=== PATIENT | male | born 1940 | race Caucasian/White ===

== ENCOUNTER 2018-11-10 12:00 | Inpatient (IN) ==
[2018-12-03] MEDS ORDERED: GABAPENTIN 300 MG CAPSULE PO ONE ×2 (06:00→08:28)
[2018-12-03] MEDS ORDERED: Nasal Sanitizer POPSWAB ampule 3 AMP (Nozin) PREOP DOSE ENOS SCH (06:00)
[2018-12-03] MEDS ORDERED: CELECOXIB 200 MG CAPSULE PO ONE ×2 (06:00→08:27)
[2018-12-03] MEDS ORDERED: PANTOPRAZOLE 20 MG TABLET.DR PO ONE ×2 (06:00→08:27)
[2018-12-03] MEDS ORDERED: ceFAZolin Inj 2gm (Premix) 2 GM/50 ML BAG IV ONE ×2 (06:00→08:28)
[2018-12-03] MEDS ORDERED: Lactated Ringers 1,000 ML PRIMARY IV SCH ×2 (06:00→17:30)
[2018-12-03] MEDS ORDERED: LIDOCAINE W/ SODIUM BICARB 0.5 ML SYR SUBD ONE (06:00)
[2018-12-03] MEDS ORDERED: ACETAMINOPHEN 500 MG TABLET PO ONE ×2 (06:00→08:27)
[2018-12-03] MEDS ORDERED: LIDOCAINE W/ SODIUM BICARB 0.5 ML SYR ONE (08:28)
[2018-12-03] MEDS ORDERED: Lactated Ringers 1,000 ML PRIMARY IV ONE ×2 (08:28→15:48)
[2018-12-03 10:18] LABS: BILIRUBIN,URINE NEGATIVE (NEG); CLARITY,URINE CLEAR (CLEAR); COLOR,URINE YELLOW (Y); GLUCOSE, URINE (UA) NEGATIVE (NEG); OCCULT BLOOD,URINE NEGATIVE (NEG); PROTEIN,URINE NEGATIVE (NEG); UROBILINOGEN,URINE 0.2 EU/dL (0.2)
[2018-12-03 10:20] LABS: URINE SAMPLE TYPE CLEAN CATCH URINE
[2018-12-03 10:56] LABS: Hematocrit [HCT] 45.2 % (42.0-52.0); Hemoglobin [HGB] 15.2 g/dL (14.0-18.0); MEAN CORPUSCULAR HEMOGLOBIN 30.3 PG (27-31); MEAN CORPUSCULAR HGB CONC 33.6 g/dL (33-37); MEAN PLATELET VOLUME 9.6 FL (7.4-12.2); RED BLOOD COUNT 5.02 10^6/uL (4.70-6.10)
[2018-12-03 11:11] LABS: BLOOD UREA NITROGEN 29 mg/dL (7-22); BUN/CREATININE RATIO 36.25 (6-20)
[2018-12-03] MEDS ORDERED: Ropivacaine 0.2% VIAL 20 ML ONE (12:34)
[2018-12-03] MEDS ORDERED: BUPIVACAINE 0.5% W/EPI MPF -30 ML VIAL IV ONE (12:34)
[2018-12-03] MEDS ORDERED: DEXAMETHASONE PF 10 MG/1 ML VIAL ONE (12:34)
[2018-12-03] MEDS ORDERED: BUPivacaine Liposome/PF (Exparel) Inj 20ml vial INFIL ONE (12:47)
[2018-12-03] MEDS ORDERED: BACITRACIN 50,000 UNIT VIAL IRRIG ONE (12:47)
[2018-12-03] MEDS ORDERED: Sodium Chloride 0.9% vial 40 ML ONE (12:47)
[2018-12-03] MEDS ORDERED: Ketorolac Inj 30 MG, Morphine Inj (Ortho Cocktail) 4 MG, BUPivacaine Inj 0.25% PF 150 MG SPLASH ONE ×6 (13:02→16:45)
[2018-12-03] MEDS ORDERED: MIDAZOLAM HCL 2 MG/2 ML VIAL ONE (13:54)
[2018-12-03] MEDS ORDERED: EPINEPHrine Inj (1:1,000) 1 mg/ml amp ONE (13:54)
[2018-12-03] MEDS ORDERED: fentaNYL Inj 100 MCG/2 ML VIAL ONE ×2 (13:54→15:27)
[2018-12-03] MEDS ORDERED: MORPHINE SULFATE/PF 10 MG/10 ML AMPULE ONE (13:54)
[2018-12-03] MEDS ORDERED: LIDOCAINE HCL 2 % 10 ML JELLY URO-JECT TOPICAL ONE (14:12)
[2018-12-03] MEDS ORDERED: KETAMINE 100 MG/1 ML - 5 ML ONE (14:37)
[2018-12-03] MEDS ORDERED: PROPOFOL 10 MG/1 ML (200 MG/20 ML) VIAL IV ONE (14:37)
[2018-12-03] MEDS ORDERED: Hetastarch 6% + NS 500 ML IV ONE (14:57)
[2018-12-03] MEDS ORDERED: TRANEXAMIC ACID 1,000 MG / 10 ML VIAL ONE (15:15)
--- NOTE | 2018-12-03 15:58 | CRNA.PROGR ---
Anesthesia Time - Procedure/Recovery Time Start Date: 12/03/18 End Date: 12/03/18 Anesthesia : Time In: 14:42 Anesthesia : Time Out: 17:25 Anesthesia : Total Time: 163 - Block Time Start Date: 12/03/18 End Date: 12/03/18 PreOp Block : Time In: 14:00 PreOp Block : Time Out: 14:14 PreOp Block : Total Time: 14 - Total Anesthesia Time Total Anesthesia Time (minutes): 177 - Other Weight: 110.677 kg Height: 5 ft 11 in Body Mass Index (BMI): 34.0 Physical Status: P3 Anesthesia Type: General Anesthesia : LMA, Other
--- NOTE | 2018-12-03 16:06 | CRNA.PROCE ---
Central Neuraxis Block Placemt - - Safety Measures: Time Out Taken, Site Verified - - Type of Block: Subarachnoid Reason for Block: Surgical Moniters Used During Block: EKG, SPO2 Sedation Used - Enter Amount Used in Comment Field: Midazolam (mg): Yes (1), Fentanyl (mcg): Yes (1) Positioning: Sitting Skin Prep Used: ChloroPrep Draped: Yes Skin Infiltration - Enter Amount Used in Comment Field: 1% Xylocaine (mL): Yes (3.5) Introducer User: None Spinal Needle Used: 22 Amber 80 mm Additive Used - Enter Amount Used in Comment Field: Preservative Free Morphine (mg): Yes (0.15), Epinephrine 1:1000 Needle Rinse (mL): Yes (hub rinse) - - Additional Details: Unable to get free flow CSF. Transient parasthesia's but no free flow csf Could not get in, 2 levels. Changed anesthesia technique. Anesthesia Time - Block Time PreOp Block : Time In: 14:00 PreOp Block : Time Out: 14:14 - Other Weight: 110.677 kg Height: 5 ft 11 in Body Mass Index (BMI): 34.0
--- NOTE | 2018-12-03 16:09 | CRNA.PROCE ---
Nerve Block Documentation - - Safety Measures: Time Out Taken - - Position for Nerve Block: Supine Moniters Used During Block: EKG, SPO2, NIBP Sedation Used - Enter Amount in Comment Field [ANES.SEDAT]: Midazolam (mg): Yes (1), Fentanyl (mcg): Yes (50) Skin Prep Used: ChloroPrep (Three times) Draped: No Nerve Block Needle Used: EchoBright 100 mm Local Anesthetic - Enter Amt in Comment Field [ANES.LOCNB]: 0.5 % Bupivicaine with Epinephrine 1:200,000 (mL): Yes (17 ml), 0.2 % Ropivacaine (mL): Yes (14 ml) Additives to Nerve Blocks: Dexamethasone (mg): Yes (10) - - PreOp Block : Time In: 14:00 PreOp Block : Time Out: 14:14 Anesthesia Time - Block Time PreOp Block : Time In: 14:00 PreOp Block : Time Out: 14:14 - Other Weight: 110.677 kg Height: 5 ft 11 in Body Mass Index (BMI): 34.0
--- NOTE | 2018-12-03 17:26 | ORTHO.OP ---
Surgery Date: 12/03/18 Preoperative Diagnosis: Right TKA Postoperative Diagnosis: same Procedure: right TKA Surgeon: Cyrus Arguelles MD Hoistman: Shantell Kenny PA-C Anesthesia Provider: Adelina Boss CRNA Anesthesia Type: General, Regional (adductor canal) Estimated Blood Loss (mL): 100 Fluids: 1500 mL LR; 500 mL hesp. Pathology: none Findings: See Operative Note Indications: See Operative Note Complications: None
[2018-12-03] MEDS ORDERED: LIDOCAINE HCL 2 % 10 ML JELLY URO-JECT TOPICAL PRN ×3 (17:29→20:18)
[2018-12-03] MEDS ORDERED: CYCLOBENZAPRINE 10 MG TABLET PO PRN ×2 (17:29→20:18)
[2018-12-03] MEDS ORDERED: HYDROcodone-APAP 7.5 MG-325 MG TABLET PO PRN (17:29)
[2018-12-03] MEDS ORDERED: ONDANSETRON 4 MG/2 ML VIAL IVP PRN ×2 (17:29→20:18)
[2018-12-03] MEDS ORDERED: HYDROmorphone 2 MG/1 ML ONE (17:43)
[2018-12-03] MEDS ORDERED: HYDROmorphone 2 MG/1 ML IVP PRN (17:47)
[2018-12-03 17:48] LABS: Hematocrit [HCT] 40.1 % (42.0-52.0); Hemoglobin [HGB] 13.5 g/dL (14.0-18.0)
--- NOTE | 2018-12-03 19:13 | DI ---
RIGHT KNEE, 12/03/2018 5:43 PM: Clinical History: Status post total knee replacement. Osteoarthritis. Previous Exam: None at this facility. Comparison is made with outside films from [facility] [place], [place] dated 10/19/2018. Views: AP and lateral. Patient is status post total right knee replacement. Prosthetic joint articulates normally. Reading: Status post total right knee replacement. The prosthetic joint articulates normally.
--- NOTE | 2018-12-03 20:35 | CONSULT ---
Consult Note - Consult Consult Date: 12/03/18 Reason for Consult: PostOp Consulation : Ortho Requesting Physician: Dr. Arguelles Primary Care Provider: Micheal Phillips MD - History of Present Illness History of Present Illness: This is a 78 years old male with medical history significant for history of hype rtension, hypothyroidism, history of paroxysmal A. fib and osteoarthritis who came in to have right knee replacement and was done by Dr. Arguelles. The hospitalist service were consulted for management of medical issues. The patient was seen postoperatively he is denying complaint, no pain, no shortness of breath, no dizziness. No nausea. Past Medical History Medical History: 1. History of hypertension. 2. History of GERD. 3. History of BPH. 4. History of paroxysmal A. fib. 5. History of osteoarthritis. 6. History of hyperlipidemia. 6. History of hypothyroidism Surgical History: History of arthroscopy Family History: Reviewed an Not Pertinent Past Social History: Does not smoke, does not drink, no drugs. Tobacco Use: Never Smoker In the Past 12 Months, Have Used or Abuse Any of the Following Substance: None Review of Systems - Review of Systems All Systems: Reviewed & No Additional Complaints Except as Stated Medication / Allergies Home Medications: Home Medications Medication Instructions Recorded Confirmed RX: Aspirin 2 tab ORAL QD tab 07/09/12 12/02/18 amiodarone 200 mg tablet 200 mg PO QDAY #1 tab 02/05/18 12/02/18 apixaban 5 mg tablet 5 mg PO BID #1 tab 02/05/18 12/02/18 metoprolol succinate ER 25 mg 12.5 mg PO QDAY #1 tab 02/05/18 12/03/18 tablet,extended release 24 hr atorvastatin 40 mg tablet 40 mg PO QPM #90 tab 05/11/18 12/02/18 calcium citrate 315 mg-vitamin D3 1 tab PO BID 10/08/18 12/02/18 250 unit tablet lisinopril 20 mg tablet 20 mg PO QDAY 10/08/18 12/02/18 mfyxjmln-odn-fbtnj acid 300 1 tab PO QDAY 10/08/18 12/02/18 mcg-lycopene 600 mcg-lutein 300 mcg tablet tamsulosin 0.4 mg capsule 0.8 mg PO QHS #180 cap 10/08/18 12/02/18 hydrochlorothiazide 25 mg tablet 25 mg PO DAILY #90 tab 10/13/18 12/02/18 levothyroxine 125 mcg tablet 125 mcg PO QAM #90 tab 11/18/18 12/03/18 omeprazole 40 mg capsule,delayed 40 mg PO QDAY #90 cap 11/18/18 12/02/18 release Allergies/Adverse Reactions: Allergies Allergy/AdvReac Type Severity Reaction Status Date / Time No Known Allergies Allergy Unverified 12/02/18 10:26 Exam - Vitals Vital Signs: Vital Signs Temperature 97.2 F Pulse Rate 48 Respiratory Rate 12 Blood Pressure 180/101 Pulse Ox 96 Oxygen Flow Rate 2L NC Height 5 ft 11 in Weight 244 lb - General General Appearance: No Acute Distress, Cooperative, Obese - Head Head Exam: Normal Inspection - Eye Eye Exam: POSITIVE: Normal Appearance - ENT ENT Exam: POSITIVE: Normal Exam - Neck Neck Exam: Normal Inspection - Respiratory Respiratory Exam: POSITIVE: Clear to Auscultation - Bilaterally - Cardiovascular Cardiovascular Exam: POSITIVE: RRR - GI/Abdominal GI/Abdominal Exam: POSITIVE: Normal Bowel Sounds, Non Tender, Non Distended, Soft, No Organomegaly - Rectal Rectal Exam: POSITIVE: Deferred - External Exam: POSITIVE: Deferred - Extremities Additional Extremities Exam Details: CDs boot applied. Dressing applied to the right knee. - Back Back Exam: POSITIVE: Normal Inspection - Neurological Neurological Exam: POSITIVE: Alert, Oriented x 3, CN II-XII Intact, No Facial Droop, Speech Intact / Clear - Psychiatric Psychiatric Exam: POSITIVE: Normal Affect Results - Labs CBC and BMP: 12/04/18 05:20 12/03/18 10:40 Assessment and Plan - Patient Problems (1) Status post right knee replacement Current Visit: Yes Status: Acute Comment: Management. Dr. Arguelles. Pain medication was written. Discussed with him DVT prophylaxis the patient has a history of A. fib and he is on eliquis and we'll start that tomorrow morning. Code(s): Z96.651 - Presence of right artificial knee joint (2) Hyperlipidemia Current Visit: No Status: Chronic Comment: Same medication Code(s): E78.5 - Hyperlipidemia, unspecified (3) Atrial fibrillation Current Visit: No Status: Chronic Comment: Patient has a history of A. fib continue amiodarone, metoprolol and will restart elquis tomorrow morning. Code(s): I48.91 - Unspecified atrial fibrillation Qualifiers: Atrial fibrillation type: unspecified Qualified Code(s): I48.91 - Unspecified atrial fibrillation (4) Essential hypertension Current Visit: No Status: Chronic Comment: I think will give him his night medication and then will see what's his blood pressure like and decide whether we need to give him additional blood pressure medication otherwise will restart his medication in the morning. Code(s): I10 - Essential (primary) hypertension (5) Hypothyroidism Current Visit: No Status: Acute Onset Date: 11/02/13 Comment: Same medications Code(s): E03.9 - Hypothyroidism, unspecified
[2018-12-03] MEDS ORDERED: DOCUSATE 100 MG CAPSULE PO SCH (21:00)
[2018-12-03] MEDS: DOCUSATE 100 MG CAPSULE PO SCH (21:01)
[2018-12-03] MEDS: OMEPRAZOLE 40 MG CAPSULE PO SCH (21:02)
[2018-12-03] MEDS: ATORVASTATIN 40 MG TABLET PO SCH (21:02)
[2018-12-03] MEDS: AMIODARONE 200 MG TABLET PO SCH (21:02)
[2018-12-03] MEDS: TAMSULOSIN 0.4 MG CAPSULE PO SCH (21:03)
[2018-12-03] MEDS: HYDROcodone-APAP 7.5 MG-325 MG TABLET PO PRN (22:06)
[2018-12-03] MEDS ORDERED: ceFAZolin Inj 2gm (Premix) 2 GM/50 ML BAG IV SCH (23:00)
[2018-12-04] MEDS: ceFAZolin Inj 2gm (Premix) 2 GM/50 ML BAG IV SCH ×2 (01:36→12:47)
[2018-12-04 06:22] LABS: Hematocrit [HCT] 40.1 % (42.0-52.0); Hemoglobin [HGB] 13.4 g/dL (14.0-18.0); MEAN CORPUSCULAR HEMOGLOBIN 30.4 PG (27-31); MEAN CORPUSCULAR HGB CONC 33.4 g/dL (33-37); MEAN CORPUSCULAR VOLUME 90.9 FL (80-90); MEAN PLATELET VOLUME 10.1 FL (7.4-12.2); RED BLOOD COUNT 4.41 10^6/uL (4.70-6.10)
[2018-12-04 06:32] LABS: BLOOD UREA NITROGEN 24 mg/dL (7-22)
[2018-12-04] MEDS: Lactated Ringers 1,000 ML PRIMARY IV SCH ×6 (07:39→16:31)
[2018-12-04] MEDS: LEVOTHYROXINE 125 MCG TABLET PO SCH (07:45)
[2018-12-04] MEDS: HYDROcodone-APAP 7.5 MG-325 MG TABLET PO PRN ×3 (07:46→20:40)
--- NOTE | 2018-12-04 08:26 | CRNA.PROGR ---
Anesthesia Note - Progress Notes Anesthesia Progress Note: Sitting up in a chair with nearby. States he's comfortable. States he's able to void. States he ambulated yesterday evening. Denies nausea or GI upset. States he had a pain pill last night, but didn't really need it. Vital Signs - Last Taken Temperature 97.9 F 12/04/18 05:00 Pulse Rate 54 L 12/04/18 05:00 Respiratory Rate 16 12/04/18 05:00 Blood Pressure 168/85 12/04/18 05:00 Pulse Ox 94 12/04/18 05:28 He states he's very pleased with his care. No apparent anesthetic difficulties.
[2018-12-04] MEDS: HYDROCHLOROTHIAZIDE 25 MG TABLET PO SCH (08:38)
[2018-12-04] MEDS: Apixaban 5 MG TABLET PO SCH ×2 (08:38→20:41)
[2018-12-04] MEDS: METOPROLOL SUCCINATE 25 MG SR 24H TABLET PO SCH (08:38)
[2018-12-04] MEDS: LISINOPRIL 20 MG TABLET PO SCH (08:38)
[2018-12-04] MEDS: DOCUSATE 100 MG CAPSULE PO SCH ×2 (08:39→20:41)
[2018-12-04] MEDS ORDERED: ENOXAPARIN SODIUM 30 MG/0.3 ML SYRINGE SUBCUT SCH ×2 (09:00)
--- NOTE | 2018-12-04 12:22 | ORTHO.PROG ---
Progress Note -: Vital Signs - Last Taken Temperature 97.7 F 12/04/18 08:30 Pulse Rate 51 L 12/04/18 08:30 Respiratory Rate 16 12/04/18 08:30 Blood Pressure 145/84 12/04/18 08:30 Pulse Ox 95 12/04/18 08:30 Laboratory Results 12/03/18 12/04/18 12/04/18 17:30 05:20 05:20 WBC 10.09 RBC 4.41 L Hgb 13.5 L 13.4 L Hct 40.1 L 40.1 L MCV 90.9 H MCH 30.4 MCHC 33.4 RDW Std Deviation 49.1 RDW Coeff of Dolores 15.1 H Plt Count 211 MPV 10.1 Sodium 139 Potassium 4.2 Chloride 105 Carbon Dioxide 24 Anion Gap 10 BUN 24 H Creatinine 0.8 BUN/Creatinine Ratio 30.00 H Glucose 119 H Calculated Osmolality 292.0 Calcium 8.6 L Subjective: - Postop Day [1] Objective: - Taking PO pain medication before PT but otherwise no pain or discomfort. No chest pain or shortness of breath. - Tolerating regular diet - No Gonzalez - voiding without difficulty - Ambulating in IROM brace to be worn while sleeping as pt had flexion contracture pre-op. - Labs and Vital Signs reviewed Assessment: - CMS intact X for numbness from adductor canal block -dressing intact Plan: - Discharge home once cleared by Physical Therapy -Start eliquis today for intermittent AFib which should suffice for chemical DVT prophylaxis
--- NOTE | 2018-12-04 14:53 | PDOC(PROG) ---
Date of Service: 12/04/18 Time of Service: 15:00 Interval History: Subjective Patient was laying in bed does not appear in distress. No significant pain in the knees he said his pain maybe 2 out of 10. No chest pain, no nausea. No shortness of breath. Objective : Data - Labs CBC and BMP: 12/04/18 05:20 12/04/18 05:20 Objective : Exam - General General Appearance: No Acute Distress, Cooperative, Obese - Head Head Exam: Normal Inspection - Eye Eye Exam: Normal Appearance - ENT ENT Exam: Normal Exam - Neck Neck Exam: Normal Inspection - Respiratory Respiratory Exam: Clear to Auscultation - Bilaterally - Cardiovascular Cardiovascular Exam: RRR - GI/Abdominal GI/Abdominal Exam: Normal Bowel Sounds, Non Tender, Non Distended, Soft, No Organomegaly - Rectal Rectal Exam: Deferred - External Exam: Deferred - Extremities Additional Extremities Exam Details: Dressing applied to the right knee. - Back Back Exam: Normal Inspection - Neurological Neurological Exam: Alert, Oriented x 3, CN II-XII Intact, No Facial Droop, Speech Intact / Clear - Psychiatric Psychiatric Exam: Normal Affect Assessment and Plan - Patient Problems (1) Status post right knee replacement Current Visit: Yes Status: Acute Comment: His pain seemed to be control. Continue PT and OT. For DVT prophylaxis he is on eliquis Code(s): Z96.651 - Presence of right artificial knee joint (2) Hyperlipidemia Current Visit: No Status: Chronic Comment: Same med Code(s): E78.5 - Hyperlipidemia, unspecified (3) Atrial fibrillation Current Visit: No Status: Chronic Comment: Continue amiodarone, metoprolol and we resumed his anticoagulation with eliquis. Code(s): I48.91 - Unspecified atrial fibrillation Qualifiers: Atrial fibrillation type: unspecified Qualified Code(s): I48.91 - Unspecified atrial fibrillation (4) Essential hypertension Current Visit: No Status: Chronic Comment: Same med Code(s): I10 - Essential (primary) hypertension (5) Hypothyroidism Current Visit: No Status: Acute Onset Date: 11/02/13 Comment: Same medication Code(s): E03.9 - Hypothyroidism, unspecified
--- NOTE | 2018-12-04 15:41 | PT PM DAY ---
PM - Physical Therapy O: The patient was issued an IROM brace and instructed in its propre use and care. P: No further therapy is indicated at this time. MTDD
--- NOTE | 2018-12-04 16:36 | PT.PROG ---
Progress Note Progress Note: S: Pt reported that he is feeling good this afternoon and feels like he would be ready for discharge tomorrow. O: CMP machine was removed and immobilizer placed on pt. Pt ambulated from room down to the therapy gym with FWW with ENERGY SCHEDULER x2 and contact guard x1 for safety. Pt immobilizer was removed and heat was applied for pain management. Therapeutic Exercise: x10 heelsides x10 SAQ x10 hip abduction/adduction x10 SLR x10 Sit to stands Pt ambulated back to roomw without immobilizer. Performed transfer into bed with contact guard x1 for safety. SCDs and CPM machine was reapplied with call light in place and bed alarm set. A: Pt demos good quad control with exercises. Able to achieve approx. 80 degrees of flexion with heelslides. P: See pt in the morning before discharging.
[2018-12-04] MEDS: ATORVASTATIN 40 MG TABLET PO SCH (20:40)
[2018-12-04] MEDS: TAMSULOSIN 0.4 MG CAPSULE PO SCH (20:40)
[2018-12-04] MEDS: AMIODARONE 200 MG TABLET PO SCH (20:41)
[2018-12-04] MEDS: OMEPRAZOLE 40 MG CAPSULE PO SCH (20:41)
[2018-12-05] MEDS: HYDROcodone-APAP 7.5 MG-325 MG TABLET PO PRN ×2 (00:28→08:32)
[2018-12-05 04:57] LABS: Hematocrit [HCT] 38.8 % (42.0-52.0); MEAN CORPUSCULAR HEMOGLOBIN 30.7 PG (27-31); MEAN CORPUSCULAR HGB CONC 33.5 g/dL (33-37); MEAN CORPUSCULAR VOLUME 91.5 FL (80-90); RED BLOOD COUNT 4.24 10^6/uL (4.70-6.10)
[2018-12-05 05:14] LABS: BLOOD UREA NITROGEN 27 mg/dL (7-22); BUN/CREATININE RATIO 33.75 (6-20)
[2018-12-05] MEDS: LEVOTHYROXINE 125 MCG TABLET PO SCH (05:39)
[2018-12-05 06:58] VITALS: BP 105/68; RESP 14; TEMP 97.9; O2SAT 96
[2018-12-05] MEDS: Apixaban 5 MG TABLET PO SCH (08:31)
[2018-12-05] MEDS: DOCUSATE 100 MG CAPSULE PO SCH (08:32)
[2018-12-05] MEDS: METOPROLOL SUCCINATE 25 MG SR 24H TABLET PO SCH (08:32)
[2018-12-05] MEDS: HYDROCHLOROTHIAZIDE 25 MG TABLET PO SCH (08:32)
[2018-12-05] MEDS: LISINOPRIL 20 MG TABLET PO SCH (08:32)
--- NOTE | 2018-12-07 11:50 | PTI REPORT ---
Thank you for the referral of Sachin Dupont. He was seen on 12/04/18 for an inpatient evaluation status post right total knee arthroplasty. SUBJECTIVE: The patient is a 78-year-old male. The patient states that he is feeling good; however, he attributes that to his block that he received during surgery. The patient states that he lives in [place] and he does not have any stairs to get into the house. He states he does not have any stairs once he is in the house. He lives in a one level home with his . The patient states that he has already been up and walking around. He states he walked around the g[place]pie and throughout his room to go to the bathroom last night and this morning. The patient states that he had a fall approximately one year ago which prevented him from getting his knee replaced earlier. He states that he had a surgery scheduled; however, the fall prevented that surgery and had to be pushed back. The patient states that he has walking sticks that he used to use when he was ambulating outside in the grass and on the snow; however, prior to this surgery he was not using any other assistive device. PAST MEDICAL HISTORY: Past medical history can be found in the patient's medical record. OBJECTIVE FINDINGS: General observations: The patient was in bedside chair upon the therapist's arrival. The patient had a knee IROM brace on that was set at 0 degrees of extension. Transfers: The patient was able to transfer from sit to stand with contact guard assist x2 for safety. The patient was able to transfer from stand to sitting edge of bed with contact guard assist x1. Ambulation: The patient was fitted for a walker and ambulated 300 feet. He was able to put the majority of his weight through his right lower extremity. The patient needed minor cueing to keep four wheeled walker at a good distance as he tended to let the walker get away from him. ASSESSMENT: Problem List: Pain in the right knee Decreased passive and active range of motion in the right knee Decreased strength in the right knee Short-Term Goals: To be met by discharge from inpatient: Patient will be able to transfer from bed to stand independently. Patient will be able to ambulate 150 feet with walker, weight-bearing as tolerated. Patient will be able to ascend and descend 5 stairs with walker, weight-bearing as tolerated. Long-Term Goals: To be met following discharge from inpatient: Patient may be seen by outpatient physical therapy. TREATMENT PLAN: Patient will be seen B.I.D during the week and one time per day over the weekend as an inpatient for transfers, gait training, stair training, and instruction in home exercise program. INITIAL TREATMENT: Treatment today consisted of the initial evaluation followed by one unit of functional activity. Following treatment the patient was left in bed with bed alarm set, CPM machine set from 0 to 90 degrees, and call light within reach. Dictated by: PEYTON Carreno Supervised by: SEPIDEH David
--- NOTE | 2018-12-07 11:56 | OTI REPORT ---
Thank you for the referral of Sachin Dupont. He was seen on 12/04/18 for an occupational therapy inpatient evaluation status post right total knee arthroplasty. SUBJECTIVE: The patient is a 78-year-old male who underwent a right total knee replacement. The patient is one day post op. The patient does live in [place]. [place] with his and he still does some ranching. The patient has a walk- in shower with a borrowed shower seat as well as a borrowed high rise toilet seat. The patient's plan is to get the other knee done here in the next 2-6 weeks when he is ready. PAST MEDICAL HISTORY: Past medical history can be found in the patient's medical record. OBJECTIVE FINDINGS: General observations: The patient was in bed upon the therapist's arrival with the CPM on his right leg. Range of motion/Strength: The patient has good shoulder range of motion with upper extremity strength of 5/5. Bed mobility: The patient was able to complete bed mobility with mod independence. Activities of daily living: The patient donned his shorts with no use of adaptive equipment. The patient was educated on donning his brace onto his knee and did require mod assist at this time. The patient was able to demonstrate use of a sock aide with mod independence after education. Transfers: The patient was able to transfer from sit to stand with contact guard assist for safety only. The patient transferred into the bathroom where he completed toileting with mod independence. The patient then transferred back into the recliner. ASSESSMENT: The patient has met all goals and will be discharged from occupational therapy services. The and the daughter did agree that they would accept a shower chair as well as a high rise toilet seat for home. TREATMENT PLAN: Patient will be discharged from OT services at this time. INITIAL TREATMENT: Treatment today consisted of the initial evaluation only. MARIE
--- NOTE | 2018-12-07 12:47 | PT AM DAY ---
Diagnosis : Right Total Knee Arthroplasty AM - Physical Therapy S: The patient reports he is doing well and is going to be discharged at 11:00 following therapy. O: The patient was able to perform bed mobility with stand by assistance as well as demonstrate the ability to ambulate all the way downstairs to physical therapy with gait belt, stand by assistance, and front wheeled walker with weight-bearing as tolerated on his right lower extremity. Downstairs in therapy he performed therapeutic exercises and functional activities including quad sets, heel slides with assistance of a gait belt, long arc quads, sit to stands with the #2 box, and gait training up and down stairs with use of a walker with a step to gait pattern. The patient also received a dressing change with supplies provided by the physical therapy department to his right lower extremity and a TROM brace adjustment. The patient was instructed that at this time the patient only needs to wear the brace locked in extension at night to promote full extension. He was able to ambulate all the way back upstairs to his room where both the patient and the were educated on donning/doffing and adjustment of the TROM brace and participation with physical therapy in [place] starting on Friday. A: The patient did well. P: Patient will be discharged to home. MARIE
--- NOTE | 2018-12-14 11:46 | ORTHO.DC ---
Discharge Summary Admit Date: 12/03/18 Discharge Date: 12/04/18 Admitting Diagnosis: right knee OA s/p right TKA Discharge Diagnosis: right knee OA s/p Right TKA Primary Surgery and Date: 12/03/18 Right TKA Hospital Course: Patient was admitted after a routine Right TKA for postoperative pain management and management of baseline medical problems. He had an uneventful hospital course and was discharged home on POD 1. The hospitalist was consulted for medical management and he was kept on his baseline home medications upon discharge. Discharged home on hydrocodone for pain. Patient will resume taking Eliquis. Along with the Eliquis he will continue to wear portable SCDs for DVT ppx. Follow-up as scheduled with orthopedics in 1 week. Discharge Medications: Discharge Medications Aspirin 2 tab ORAL QD tab 07/09/12 [History] amiodarone 200 mg tablet 200 mg PO QDAY #1 tab 02/05/18 [Rx] apixaban 5 mg tablet 5 mg PO BID #1 tab 02/05/18 [Rx] metoprolol succinate ER 25 mg tablet,extended release 24 hr 12.5 mg PO QDAY #1 tab 02/05/18 [Rx] atorvastatin 40 mg tablet 40 mg PO QPM #90 tab 05/11/18 [Rx] calcium citrate 315 mg-vitamin D3 250 unit tablet 1 tab PO BID 10/08/18 [History] lisinopril 20 mg tablet 20 mg PO QDAY 10/08/18 [History] cblexzsz-odw-rwoky acid 300 mcg-lycopene 600 mcg-lutein 300 mcg tablet 1 tab PO QDAY 10/08/18 [History] tamsulosin 0.4 mg capsule 0.8 mg PO QHS #180 cap 10/08/18 [Rx] hydrochlorothiazide 25 mg tablet 25 mg PO DAILY #90 tab 10/13/18 [Rx] levothyroxine 125 mcg tablet 125 mcg PO QAM #90 tab 11/18/18 [Rx] omeprazole 40 mg capsule,delayed release 40 mg PO QDAY #90 cap 11/18/18 [Rx] Follow-Up: ELZA MOSS [Primary Care Provider] - As Needed Cyrus Arguelles [STAFF PHYSICIAN] - 12/09/18 9:30 am (Yonny Stinson PA-C) Exam - Vitals Vital Signs: Vital Signs Temperature 97.9 F Temperature Source Temporal Artery Scan Pulse Rate [Apical] 58 Pulse Rate [Right Dorsalis 57 Pedis] Pulse Rate [Pulse Oximeter 53 Left] Pulse Rate 48 Respiratory Rate 14 Blood Pressure [Right Arm] 105/68 Blood Pressure 180/101 Pulse Ox 96 Oxygen Flow Rate 2.5 Oxygen Delivery Method Room Air Height 5 ft 11 in Weight 113.398 kg
== END 2018-12-05 11:22 | disposition home or self-care (01) | DRG 470 ==
LOC: OPS 12-03 10:01 → MED/SURG 12-03 18:40
PROVIDERS: ADMIT Orthopaedic Surgery; ATTEND Orthopaedic Surgery